=== PATIENT | female | born 2000 | race Asian ===

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

== ENCOUNTER 2022-02-19 13:39 | Outpatient (CLI) | payer OTHER ==
[2022-02-19 14:00] VITALS: BP 103/60
[2022-02-19] MEDS ORDERED: LACTATED RINGERS 1,000 ML IV ONE (15:02)
[2022-02-19 16:43] LABS: Color,Urine Yellow (Yellow)
[2022-02-19 16:54] LABS: Mucus,Urine FEW /HPF
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
== END 2022-02-19 17:41 | disposition home or self-care (01) ==
LOC: TRG 13:39 → APU 13:49 → TRG 17:41
PROVIDERS: ATTEND Obstetrics & Gynecology
DX: O36.8130 Decreased fetal movements, third trimester, not applicable or unspecified (principal); O46.93 Antepartum hemorrhage, unspecified, third trimester; O26.893 Other specified pregnancy related conditions, third trimester; R25.2 Cramp and spasm; M54.9 Dorsalgia, unspecified; Z3A.33 33 weeks gestation of pregnancy
CPT/HCPCS: 76815; 76819; 81001; 87086; 96360; J7120; 59025